=== PATIENT | female | born 2000 | race Two or more races ===

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

== ENCOUNTER 2021-03-15 23:27 | Emergency (ER) | payer MEDICAID ==
[~2021-03-15] VITALS: Ht 160 cm; Wt 74.8 kg
[2021-03-16 02:54] LABS: Basophils # (auto) 0.1 10 ^3/uL (0-0.2); Basophils % (auto) 0.7 % (0.0-2.0); Eosinophils # (auto) 0.4 10 ^3/uL (0-0.8); Eosinophils % (auto) 3.7 % (0.0-7.0); Hematocrit 38.9 % (36.0-46.0); Hemoglobin 13.3 g/dL (12.2-16.2); Lymphocytes # (auto) 2.8 10 ^3/uL (0.4-5.4); Lymphocytes % (auto) 25.8 % (10.0-50.0); Mean Corpuscular Hgb Conc. 34.1 g/dL (32.0-36.0); Mean Corpuscular Volume 90.8 fL (80.0-100.0); Monocytes # (auto) 0.6 10 ^3/uL (0-1.3); Monocytes % (auto) 5.5 % (0.0-12.0); Neutrophils % (auto) 64.3 % (37.0-80.0); Nucleated Red Blood Cells % 0.1 %; Red Blood Cells 4.28 10^6/uL (4.0-5.20); Red Cell Distribution Width 14.2 % (11.8-14.3); White Blood Cell 10.8 10^3/uL (4.4-10.8)
[2021-03-16 03:16] LABS: Alanine Aminotransferase 41 U/L (13-56); Albumin 3.2 g/dL (3.4-5.0); Amylase 35 U/L (25-115); Anion Gap 4 (5-15); Aspartate Aminotransferase 23 U/L (15-37); BUN/Creatinine Ratio 15.3; Blood Urea Nitrogen 9 mg/dL (7-18); CRP High Sensitivity 0.24 mg/dL (< 0.3); Calcium 8.5 mg/dL (8.5-10.1); Carbon Dioxide 25 mmol/L (21-32); Chloride 111 mmol/L (98-107); GFR African American 165 mL/min; GFR Non-African American 137 mL/min; Glucose 101 mg/dL (74-106); Lipase 89 U/L (73-393); Potassium 3.7 mmol/L (3.5-5.1); Sodium 140 mmol/L (136-145)
[2021-03-16 03:22] LABS: Alkaline Phosphatase 66 U/L (45-117); Bilirubin, Total 0.2 mg/dL (0.2-1.0); Total Protein 7.4 g/dL (6.4-8.2)
[2021-03-16 03:30] VITALS: BP 134/79
== END 2021-03-16 04:49 | disposition home or self-care (01) ==
LOC: ER 23:27
DX: F41.0 Panic disorder [episodic paroxysmal anxiety] (principal)
CPT/HCPCS: 36415; 71045; 80053; 82150; 83690; 84484; 85025; 86141; 93005